=== PATIENT | female | born 1960 | race Caucasian/White ===

== ENCOUNTER 2016-06-04 18:56 | Emergency (ER) | payer BC, OTHER ==
[~2016-06-04] VITALS: Ht 170.2 cm; Wt 62.0 kg
[~2016-06-04 18:56] MED LIST: CLON.1 PO; HYDR-2768 PO; Z.0.BCPILL PO
[2016-06-04 19:31] VITALS: BP 167/94; PULSE 81; RESP 16; TEMP 99.3; O2SAT 100
[2016-06-04] MEDS ORDERED: HYDR25TA5 PO (19:42)
[2016-06-04] MEDS ORDERED: TETANUS/DIPHTHERIA TOXOID ADULT 0.5 ML VIAL IM ONE (20:00)
[2016-06-04] MEDS ORDERED: traMADol HCL 50 MG TAB PO ONE (20:15)
--- NOTE | 2016-06-04 20:49 | RADHPO ---
EXAM DATE/TIME: 06/04/2016 19:57 [facility] COMPARISON: No previous studies available for comparison. INDICATIONS : Left knee pain; fall today. MEDICAL HISTORY : None. SURGICAL HISTORY : None. ENCOUNTER: Initial ACUITY: 1 day PAIN SCORE: 10/10 LOCATION: Left anterior knee FINDINGS: There is a relatively nondisplaced fracture through the inferior patella. No other fractures are iden tified. No dislocation. Trace joint fluid. CONCLUSION: 1. Relatively nondisplaced fracture through the inferior patella. Rob Borges MD on June 04, 2016 at 20:46 Board Certified Radiologist. This report was verified electronically.
--- NOTE | 2016-06-04 21:04 | PD ---
HPI . fall when walking dog Chief Complaint: Fall Time Seen by Provider: 19:50 Travel History International Travel<30 days: No Contact w/Intl Traveler<30days: No Traveled to known affect area: No History of Present Illness HPI 56-year-old female with hypertension and hyperlipidemia here with complaints of falling while walking her dog. Patient was walking to her daughter she got up and fell and hit her knee and her right wrist. Patient says her knee initially broke the fall and then she scratched her right wrist and sustained several abrasions. She has most of her pain located in the left knee. She rates the pain as 8/10 without any radiation. In her hand she is only complaining of pain where the abrasions are located. SHe does not recall date of last tetanus. She denies any head trauma or LOC. PFSH Past Medical History High Cholesterol: Yes Diminished Hearing: No Hypertension: Yes Tetanus Vaccination: > 5 Years Influenza Vaccination: No ?: Not : 2 Para: 2 Past Surgical History Other Surgery: Yes (BREAST REDUCTION 6 WEEKS AGO) Social History Alcohol Use: Yes (WEEKENDS) Tobacco Use: No Substance Use: No Allergies-Medications (Allergen,Severity, Reaction): Coded Allergies: No Known Allergies (Verified , 06/04/16) Reported Meds & Prescriptions Reported Meds & Active Scripts Active Tramadol (Tramadol HCl) 50 Mg Tab 50 Mg PO Q8H PRN Reported Hydrochlorothiazide 25 Mg Tab 25 Mg PO DAILY Review of Systems General / Constitutional: No: Fever Eyes: No: Visual changes HENT: No: Headaches Cardiovascular: No: Chest Pain or Discomfort Respiratory: No: Shortness of Breath Gastrointestinal: No: Abdominal Pain Genitourinary: No: Dysuria Musculoskeletal: Positive: Pain (left knee) Skin: Positive Other (abrasion right hand), No Rash Neurologic: No: Weakness Psychiatric: No: Depression Endocrine: No: Polydipsia Hematologic/Lymphatic: No: Easy Bruising Physical Exam Narrative GENERAL: AAO x 3, no acute distress, Well-nourished, well-developed patient. SKIN: Warm and dry. No visible rashes or bruising. 3 small abrasions to the right ulnar aspect of the hand. No lacerations. HEAD: Normocephalic and atraumatic. EYES: No scleral icterus. No injection or drainage. ENT: No nasal drainage noted. Mucous membranes pink. Airway patent. NECK: Supple, trachea midline. No JVD. CARDIOVASCULAR: Regular rate and rhythm without murmurs, gallops, or rubs. RESPIRATORY: Breath sounds equal bilaterally. No accessory muscle use. No rhonchi or rales. GASTROINTESTINAL: Abdomen soft, non-tender, nondistended. EXTREMITIES: No cyanosis or edema. left knee tender to touch.Inability to extend without significant pain. BACK: Nontender without obvious deformity. No CVA tenderness. PSYCH: AAO x 3, normal affect. Data Data Last Documented VS Vital Signs Date Time Temp Pulse Resp B/P Pulse Ox O2 Delivery O2 Flow Rate FiO2 06/04/16 19:31 99.3 81 16 167/94 100 Orders Knee, Complete (4vws) (06/04/16 19:52) Wound Care (06/04/16 19:52) Tetanus/Diphtheria Tox Adult (Tetanus/Di (06/04/16 20:00) Tramadol (Ultram) (06/04/16 20:15) ^ Knee Immobilizer (06/04/16 20:59) Crutches (06/04/16 20:59) MDM Medical Decision Making Medical Screen Exam Complete: Yes Emergency Medical Condition: Yes Medical Record Reviewed: Yes Differential Diagnosis abrasions, knee sprain, knee fracture, knee dislocation Narrative Course 56-year-old female with hypertension and hyperlipidemia here with complaints of falling while walking her dog. Patient was walking to her daughter she got up and fell and hit her knee and her right wrist. Patient says her knee initially broke the fall and then she scratched her right wrist and sustained several abrasions. She has most of her pain located in the left knee. She rates the pain as 8/10 without any radiation. In her hand she is only complaining of pain where the abrasions are located. SHe does not recall date of last tetanus. She denies any head trauma or LOC. Patient seen and examined. Recommend knee x-ray due to the inability to extend her left knee. Abrasions were cleaned and dressed appropriately. Tetanus shot was administered. + patellar fracture relatively nondisplaced: discussed with Dr. Flood knee immobilizer, crutches, tramadol, ortho referral Advise follow-up tomorrow. Patient verbalized understanding of instructions, questions were answered, and thanked me for their care. I advised them if their condition worsens, please return to the nearest emergency room for further care. Diagnosis Primary Impression: Patellar fracture Qualified Code: S82.002A - Closed nondisplaced fracture of left patella, unspecified fracture morphology, initial encounter Referrals: Krystian Alcantar MD Orthopaedic Surgeon Patient Instructions: General Instructions, Patellar Fracture (ED) Departure Forms: Tests/Procedures, Work Release Enter return to work date: Jun 08, 2016 Additional Instructions: Please return to emergency department if your symptoms return or worsen. Follow up with your primary care provider. Take medications as prescribed. Rest the affected area as much as possible. Wear knee immobilizer. Elevate this area. Use ibuprofen as needed for pain and inflammation. As we discussed, this is a serious injury and follow up with orthopedic is necessary. Please do not delay follow up. PLEASE SEE YOUR PRIMARY CARE DOCTOR AND ORTHOPEDICS SOON POSSIBLE. Med/Other Pt SpecificInfo: Prescription(s) given Scripts Tramadol 50 Mg Tab50 Mg PO Q8H PRN (PAIN) #15 TAB Ref 0 Prov:Anya Flood MD 06/04/16 Disposition: 01 DISCHARGE HOME Condition: Stable Riddhi Aragon Jun 04, 2016 21:04
[2016-06-04] MEDS ORDERED: TRAM50TA PO (21:09)
== END 2016-06-04 22:21 | disposition home or self-care (01) ==
LOC: PHEFT 18:56
DX: S82.002A Unspecified fracture of left patella, initial encounter for closed fracture (principal); S82.092A Other fracture of left patella, initial encounter for closed fracture; Z23 Encounter for immunization; W18.30XA Fall on same level, unspecified, initial encounter; Y93.K1 Activity, walking an animal; Y92.89 Other specified places as the place of occurrence of the external cause; Y99.8 Other external cause status
CPT/HCPCS: 73564; 90471; 90714; 99283; E0113; L1830